=== PATIENT | female | born 1990 | race Caucasian/White ===

== ENCOUNTER 2021-01-03 13:32 | Emergency (ER) | payer OTHER ==
[~2021-01-03] VITALS: Ht 170.2 cm; Wt 56.7 kg
[2021-01-03 14:06] LABS: *BILIRUBIN,URIN NEGATIVE (NEGATIVE); *CLARITY,URINE CLEAR (CLEAR); *COLOR,URINE YELLOW (YELLOW); *KETONES,URINE NEGATIVE (NEGATIVE); *UROBILINOGEN,URINE 0.2 E.U./dl (NORMAL); LEUKOCYTE ESTERASE ,URINE TRACE (NEGATIVE); NITRITE, URINE NEGATIVE (NEGATIVE); UGLUCOSE NEGATIVE (NEGATIVE)
[2021-01-03 14:10] LABS: HEMATOCRIT 42.1 % (31.2-41.9); MEAN CORPUSCULAR HEMOGLOBIN 29.8 uug (24.7-32.8); PLATELET COUNT (AUTO) 290 K/uL (179-408)
[2021-01-03 14:12] LABS: *BLOOD, URINE TRACE LYSED (NEGATIVE); *URINE HCG, QUAL NEG (NEGATIVE)
[2021-01-03] MEDS ORDERED: KETOROLAC TROMETHAMINE 60 MG INJ IM ONE ×2 (14:15→14:23)
[2021-01-03 14:17] LABS: CREATININE 0.8 mg/dL (0.6-1.3); POTASSIUM 4.1 mmol/L (3.5-5.1)
--- NOTE | 2021-01-03 14:20 | NUR ---
Patient moved to another room for pelvic exam per MD orders.
[2021-01-03 14:22] LABS: BILIRUBIN,DIRECT 0.1 mg/dL (0.0-0.2); BILIRUBIN,TOTAL 0.4 mg/dL (0.2-1.0); TOTAL PROTEIN, SERUM 6.9 g/dL (6.4-8.2)
--- NOTE | 2021-01-03 14:27 | NUR ---
Patient is now ready for pelvic exam, MD notified.
[2021-01-03 15:01] LABS: *OCCULT BLOOD STOOL NEGATIVE (NEGATIVE)
[2021-01-03 16:17] LABS: BACTERIA,URINE FEW /HPF (NONE SEEN); SQUAMOUS EPITHELIAL CELL,UR FEW /HPF (NONE SEEN)
[2021-01-03] MEDS ORDERED: NITR100C6 PO (16:56)
--- NOTE | 2021-01-03 17:08 | NUR ---
Patient discharged to home in stable condition with steady gait. Written and verbal after care instructions given to patient. Patient verbalized understanding & compliance of instructions. Stressed follow up with curriculum coach and internal medicine doctor or return to ER for worsening s/s.
== END 2021-01-03 17:09 | disposition home or self-care (01) ==
LOC: ER 13:32
DX: N39.0 Urinary tract infection, site not specified (principal); Z87.442 Personal history of urinary calculi; M54.5 Low back pain; R10.30 Lower abdominal pain, unspecified; N20.0 Calculus of kidney
CPT/HCPCS: 36415; 74176; 76856; 80048; 80076; 81001; 82270; 83690; 84703; 85025; 87086; 96372; 99285; J1885; A4663

== ENCOUNTER 2021-09-13 19:20 | Emergency (ER) | payer OTHER ==
[~2021-09-13] VITALS: Ht 170.2 cm; Wt 49.9 kg
[~2021-09-13 19:20] MED LIST: NITR100C6 PO
[2021-09-13] MEDS ORDERED: LIDOCAINE 2%-EPI 1:100,000 20 ML VIAL IJ ONE (19:45)
[2021-09-13] MEDS ORDERED: TDAP DIPH,PERTUSS,TET VAC/PF 0.5 ML DISP.SYRIN IM ONE ×2 (19:45→20:09)
[2021-09-13] MEDS ORDERED: HYDROCODONE/APAP 5-325MG TABLET PO ONE (20:00)
[2021-09-13] MEDS ORDERED: LIDOCAINE HCL 2% 20 ML VIAL ONE (20:08)
[2021-09-13] MEDS ORDERED: HYDROCODONE/APAP 5-325MG TABLET ONE (20:08)
[2021-09-13] MEDS ORDERED: HYDR-4209 PO (20:13)
[2021-09-13 20:33] VITALS: BP 149/88
== END 2021-09-13 20:35 | disposition home or self-care (01) ==
LOC: ER 19:24
DX: S01.81XA Laceration without foreign body of other part of head, initial encounter (principal); S16.1XXA Strain of muscle, fascia and tendon at neck level, initial encounter; S09.90XA Unspecified injury of head, initial encounter; W01.0XXA Fall on same level from slipping, tripping and stumbling without subsequent striking against object, initial encounter; Y92.89 Other specified places as the place of occurrence of the external cause
CPT/HCPCS: 12011; 72040; 90471; 90715; 99283; J3490; A4663

== ENCOUNTER 2021-11-22 16:04 | Emergency (ER) | payer OTHER ==
[~2021-11-22] VITALS: Ht 170.2 cm; Wt 49.9 kg
[~2021-11-22 16:04] MED LIST changes: +HYDR-4209 PO
[2021-11-22] MEDS ORDERED: KETOROLAC TROMETHAMINE 15 MG INJ IVP ONE (17:00)
[2021-11-22] MEDS ORDERED: METOCLOPRAMIDE HCL 10 MG/2 ML VIAL IV ONE (17:00)
[2021-11-22] MEDS ORDERED: IV NORMAL SALINE 1000 ML BAG IV ONE (17:00)
[2021-11-22 17:07] LABS: MEAN CORPUSCULAR HEMOGLOBIN 30.3 uug (24.7-32.8); MEAN CORPUSCULAR VOLUME 89.6 fL (75.5-95.3); PLATELET COUNT (AUTO) 280 K/uL (179-408)
[2021-11-22 17:15] LABS: CREATININE 0.6 mg/dL (0.6-1.3); POTASSIUM 3.5 mmol/L (3.5-5.1)
[2021-11-22] MEDS ORDERED: KETOROLAC TROMETHAMINE 30 MG INJ ONE (17:15)
[2021-11-22] MEDS ORDERED: METOCLOPRAMIDE HCL 10 MG/2 ML VIAL ONE (17:15)
[2021-11-22 17:22] LABS: BILIRUBIN,DIRECT 0.1 mg/dL (0.0-0.2); BILIRUBIN,TOTAL 0.3 mg/dL (0.2-1.0); TOTAL PROTEIN, SERUM 6.9 g/dL (6.4-8.2)
--- NOTE | 2021-11-22 17:26 | NUR ---
PT IS IN ROOM #2B. DR FIGUEROA EVALUATED THE PT.
[2021-11-22 17:51] LABS: *BILIRUBIN,URIN 2+ (NEGATIVE); *BLOOD, URINE 3+ (NEGATIVE); *CLARITY,URINE CLOUDY (CLEAR); *COLOR,URINE Orange (YELLOW); *KETONES,URINE 1+ (NEGATIVE); *UROBILINOGEN,URINE >=8.0 E.U./dl (NORMAL); LEUKOCYTE ESTERASE ,URINE 3+ (NEGATIVE); NITRITE, URINE POSITIVE (NEGATIVE); UGLUCOSE 1+ (NEGATIVE)
[2021-11-22] MEDS ORDERED: CEFTRIAXONE 1 G in IV DEXTROSE 5% 50 ML IV ONE (18:30)
[2021-11-22] MEDS ORDERED: CEFTRIAXONE /D5W 50ML IVPB **ER PYXIS IV ONE (18:39)
[2021-11-22 18:46] LABS: BACTERIA,URINE FEW /HPF (NONE SEEN); RBC,URINE 20-50 /HPF (0-3); SQUAMOUS EPITHELIAL CELL,UR FEW /HPF (NONE SEEN); WBC,URINE TNTC /HPF (0-3)
[2021-11-22] MEDS ORDERED: CEPH500C2 PO (19:53)
[2021-11-22] MEDS ORDERED: HYDR-4209 PO (20:07)
[2021-11-22] MEDS ORDERED: PHEN-705 PO (20:09)
[2021-11-22] MEDS ORDERED: METO-295 PO (20:09)
--- NOTE | 2021-11-22 20:17 | NUR ---
Patient discharged to home in stable condition. Written and verbal after care instructions given. Patient verbalizes understanding of instructions. Stressed follow up or return to ER for worsening s/s. Patient out of ER with steady gait, no acute signs of distress, VSS, all belongings taken, IV site discontinued, provided with copies of lab results.
[2021-11-22 20:18] VITALS: BP 122/70
== END 2021-11-22 20:19 | disposition home or self-care (01) ==
LOC: ER 16:10
DX: N39.0 Urinary tract infection, site not specified (principal); N20.0 Calculus of kidney; Z82.49 Family history of ischemic heart disease and other diseases of the circulatory system; R31.9 Hematuria, unspecified; Z88.6 Allergy status to analgesic agent; Z88.8 Allergy status to other drugs, medicaments and biological substances
CPT/HCPCS: 36415; 74176; 80048; 80076; 81001; 83690; 84702; 85025; 87086; 96361; 96365; 96375; 99284; J0696; J1885; J2765; J7040; A4663

== ENCOUNTER 2022-05-06 16:43 | Emergency (ER) | payer OTHER ==
[~2022-05-06] VITALS: Ht 170.2 cm; Wt 59.0 kg
[~2022-05-06 16:43] MED LIST changes: +CEPH500C2 PO; +METO-295 PO; +PHEN-705 PO
[2022-05-06 18:22] LABS: *BILIRUBIN,URIN NEGATIVE (NEGATIVE); *BLOOD, URINE 3+ (NEGATIVE); *CLARITY,URINE CLEAR (CLEAR); *COLOR,URINE YELLOW (YELLOW); *KETONES,URINE NEGATIVE (NEGATIVE); *UROBILINOGEN,URINE 0.2 E.U./dl (NORMAL); LEUKOCYTE ESTERASE ,URINE NEGATIVE (NEGATIVE); NITRITE, URINE NEGATIVE (NEGATIVE); UGLUCOSE NEGATIVE (NEGATIVE)
[2022-05-06] MEDS ORDERED: IV NORMAL SALINE 1000 ML BAG IV ONE (18:30)
[2022-05-06 18:37] LABS: *URINE HCG, QUAL NEG (NEGATIVE)
[2022-05-06] MEDS ORDERED: CEFTRIAXONE 1 G in IV DEXTROSE 5% 50 ML IV ONE (18:45)
[2022-05-06] MEDS ORDERED: HYDROMORPHONE 1 MG/1 ML DISP.SYRIN IV ONE (18:45)
[2022-05-06] MEDS ORDERED: PROCHLORPERAZINE EDISYLATE 10 MG/2 ML VIAL IV ONE (18:45)
[2022-05-06] MEDS ORDERED: PROCHLORPERAZINE EDISYLATE 10 MG/2 ML VIAL ONE (18:47)
[2022-05-06] MEDS ORDERED: HYDROMORPHONE 2 MG/1 ML DISP.SYRIN ONE (18:47)
--- NOTE | 2022-05-06 18:56 | NUR ---
LAB draw in progress.
--- NOTE | 2022-05-06 19:00 | NUR ---
Received report from Faye PHAN
[2022-05-06 19:04] LABS: MEAN CORPUSCULAR HEMOGLOBIN 30.5 uug (24.7-32.8); MEAN CORPUSCULAR VOLUME 91.7 fL (75.5-95.3); PLATELET COUNT (AUTO) 304 K/uL (179-408)
[2022-05-06 19:11] LABS: CREATININE 0.7 mg/dL (0.6-1.3); POTASSIUM 3.4 mmol/L (3.5-5.1)
[2022-05-06 19:17] LABS: BILIRUBIN,DIRECT 0.1 mg/dL (0.0-0.2); BILIRUBIN,TOTAL 0.4 mg/dL (0.2-1.0); TOTAL PROTEIN, SERUM 7.3 g/dL (6.4-8.2)
[2022-05-06] MEDS ORDERED: CEFTRIAXONE /D5W 50ML IVPB **ER PYXIS IV ONE (19:36)
[2022-05-06] MEDS ORDERED: POTASSIUM BICARBONATE/CIT AC 25 MEQ TABLET.EFF PO ONE (21:30)
[2022-05-06] MEDS ORDERED: PROC10TA29 PO (22:10)
[2022-05-06] MEDS ORDERED: HYDR4TAB4 PO (22:10)
--- NOTE | 2022-05-06 22:22 | NUR ---
Patient discharged to home in stable condition. Written and verbal after care instructions given. Patient verbalizes understanding of instructions. Stressed follow up or return to ER for worsening s/s.
[2022-05-06 22:23] VITALS: BP 118/80
[2022-05-06 22:36] LABS: BACTERIA,URINE NONE SEEN /HPF (NONE SEEN); SQUAMOUS EPITHELIAL CELL,UR FEW /HPF (NONE SEEN); WBC,URINE 0-3 /HPF (0-3)
== END 2022-05-06 22:24 | disposition home or self-care (01) ==
LOC: ER 16:43
DX: N13.2 Hydronephrosis with renal and ureteral calculous obstruction (principal); Z87.440 Personal history of urinary (tract) infections; Z87.442 Personal history of urinary calculi
CPT/HCPCS: 99285; 74176; 96365; 76770; 96375; 80076; 80048; 81001; 84703; 83690; 83735; 85025; 87040; 87086; 36415; J0696; J0780; J1170; J7040; A4663

== ENCOUNTER 2022-06-05 20:55 | Emergency (ER) | payer OTHER ==
[~2022-06-05] VITALS: Ht 170.2 cm; Wt 59.0 kg
[~2022-06-05 20:55] MED LIST changes: +HYDR4TAB4 PO; +PROC10TA29 PO
--- NOTE | 2022-06-05 21:35 | NUR ---
Dr. Rico at bedside. MSE in progress.
[2022-06-05] MEDS ORDERED: IV NORMAL SALINE 1000 ML BAG IV ONE (22:00)
[2022-06-05] MEDS ORDERED: PROCHLORPERAZINE EDISYLATE 10 MG/2 ML VIAL IV ONE (22:00)
[2022-06-05] MEDS ORDERED: MORPHINE SULFATE 2 MG/1 ML DISP.SYRIN IV ONE (22:00)
[2022-06-05] MEDS ORDERED: PROCHLORPERAZINE EDISYLATE 10 MG/2 ML VIAL ONE (22:13)
[2022-06-05] MEDS ORDERED: MORPHINE SULFATE 4 MG/1 ML DISP.SYRIN ONE (22:14)
[2022-06-05 22:16] LABS: HEMATOCRIT 42.5 % (31.2-41.9); MEAN CORPUSCULAR HEMOGLOBIN 30.3 uug (24.7-32.8); MEAN CORPUSCULAR VOLUME 91.4 fL (75.5-95.3); PLATELET COUNT (AUTO) 289 K/uL (179-408)
[2022-06-05 22:21] LABS: *BILIRUBIN,URIN NEGATIVE (NEGATIVE); *CLARITY,URINE CLEAR (CLEAR); *COLOR,URINE YELLOW (YELLOW); *KETONES,URINE NEGATIVE (NEGATIVE); *UROBILINOGEN,URINE 0.2 E.U./dl (NORMAL); LEUKOCYTE ESTERASE ,URINE 1+ (NEGATIVE); NITRITE, URINE NEGATIVE (NEGATIVE); UGLUCOSE NEGATIVE (NEGATIVE)
[2022-06-05 22:29] LABS: ALANINE AMINOTRANSFERASE 15 U/L (14-59); ALKALINE PHOSPHATASE 84 U/L (50-136); ASPARTATE AMINOTRANSFERASE 6 U/L (15-37); BILIRUBIN,DIRECT 0.1 mg/dL (0.0-0.2); BILIRUBIN,TOTAL 0.3 mg/dL (0.2-1.0); CARBON DIOXIDE 25 mmol/L (21-32); CHLORIDE 105 mmol/L (98-107); CREATININE 0.5 mg/dL (0.6-1.3); GLUCOSE 103 mg/dL (74-106); LIPASE 170 U/L (73-393); POTASSIUM 3.8 mmol/L (3.5-5.1); TOTAL PROTEIN, SERUM 7.2 g/dL (6.4-8.2); UREA NITROGEN, BLOOD 13 mg/dL (7-18)
[2022-06-05 22:32] LABS: *BLOOD, URINE TRACE (NEGATIVE)
[2022-06-05 22:53] LABS: *URINE HCG, QUAL NEGATIVE (NEGATIVE)
[2022-06-05 22:58] LABS: RBC,URINE 0-3 /HPF (0-3)
[2022-06-05 22:59] LABS: BACTERIA,URINE MODERATE /HPF (NONE SEEN); SQUAMOUS EPITHELIAL CELL,UR MODERATE /HPF (NONE SEEN)
--- NOTE | 2022-06-05 23:15 | NUR ---
Taken downstairs for CT scan.
--- NOTE | 2022-06-05 23:28 | NUR ---
Patient back from CT.
[2022-06-06] MEDS ORDERED: CEFTRIAXONE 1 G in IV DEXTROSE 5% 50 ML IV ONE ×2
[2022-06-06] MEDS ORDERED: CEFP200T14 PO (00:04)
--- NOTE | 2022-06-06 00:20 | NUR ---
A/O x4. NAD noted. Ambulatory with a steady gait. All belongings with patient. Patient discharged to home in stable condition. Written and verbal after care instructions given. Patient verbalizes understanding of instructions. Stressed follow up or return to ER for worsening s/s.
[2022-06-06 00:22] VITALS: BP 112/95
== END 2022-06-06 00:20 | disposition home or self-care (01) ==
LOC: ER 20:55
DX: N20.0 Calculus of kidney (principal); Z87.442 Personal history of urinary calculi; Z88.6 Allergy status to analgesic agent; Z88.8 Allergy status to other drugs, medicaments and biological substances
CPT/HCPCS: 99284; 74176; 96374; 96361; 96375; 80076; 80048; 81001; 84703; 83690; 85025; 36415; 87040; J0780; J2270; J7040; A4663

== ENCOUNTER 2025-03-05 13:59 | Emergency (ER) | payer MEDICAID, OTHER ==
[~2025-03-05] VITALS: Ht 167.6 cm; Wt 77.1 kg
[~2025-03-05 13:59] MED LIST changes: +CEFP200T14 PO
[2025-03-05 14:35] VITALS: BP 131/107
[2025-03-05 14:55] LABS: PLATELET COUNT (AUTO) 343 K/uL (179-408); RED BLOOD CELL COUNT(AUTO) 4.99 MIL/uL (3.63-4.92); RED CELL DISTRIBUTION WIDTH 14.6 % (12.3-17.7); WHITE BLOOD COUNT (AUTO) 11.2 K/uL (3.8-11.8)
[2025-03-05 15:01] LABS: CREATININE 0.5 mg/dL (0.6-1.3); SODIUM SERUM 141 mmol/L (136-145); UREA NITROGEN, BLOOD 14 mg/dL (7-18)
[2025-03-05 15:03] LABS: *URINE HCG, QUAL NEGATIVE (NEGATIVE)
[2025-03-05 15:07] LABS: ASPARTATE AMINOTRANSFERASE 17 U/L (15-37); TOTAL PROTEIN, SERUM 7.5 g/dL (6.4-8.2)
[2025-03-05] MEDS ORDERED: IOHEXOL 350 100 ML INFUS..BTL ONE (16:10)
[2025-03-05] MEDS ORDERED: IV NORMAL SALINE 250 ML IV ONE (16:10)
[2025-03-05] MEDS ORDERED: SWABABLE VALVE TRANSFER SET EA MC ONE (16:10)
[2025-03-05] MEDS ORDERED: SULF1TAB48 PO (17:07)
[2025-03-05] MEDS ORDERED: MUPI22OI2 TP (17:07)
[2025-03-05] MEDS ORDERED: LOSA1TAB42 PO (18:22)
[2025-03-05] MEDS ORDERED: AMLO10TA4 PO (18:22)
[2025-03-05] MEDS ORDERED: CLIN300C12 PO (18:23)
[2025-03-05 18:46] VITALS: BP 130/87; TEMP 97.8; O2SAT 95
== END 2025-03-05 18:30 | disposition home or self-care (01) ==
LOC: ER 13:59
DX: I10 Essential (primary) hypertension (principal); M79.604 Pain in right leg; M79.605 Pain in left leg; R06.00 Dyspnea, unspecified; R07.9 Chest pain, unspecified; R10.9 Unspecified abdominal pain; R14.0 Abdominal distension (gaseous); R42 Dizziness and giddiness; R10.2 Pelvic and perineal pain; Z79.899 Other long term (current) drug therapy; Z88.5 Allergy status to narcotic agent
CPT/HCPCS: 99285; 71275; 93970; 71045; 80076; 80048; 84703; 83880; 85025; 85379; 85730; 84484 ×2; 84702; 36415; 74177; 93005; Q9967; A4606; A4663